=== PATIENT | male | born 1935 | race Caucasian/White ===

== ENCOUNTER 2022-07-27 14:09 | Inpatient (IN) | payer MEDICARE ==
[~2022-07-27] VITALS: Ht 170.2 cm; Wt 103.4 kg
[2022-07-27] MEDS ORDERED: ATOR40TA PO (14:30)
[2022-07-27] MEDS ORDERED: CYAN100T44 PO (14:30)
[2022-07-27] MEDS ORDERED: ASPI81TA31 PO (14:30)
[2022-07-27] MEDS ORDERED: INSU100I14 SUBCUT (14:30)
[2022-07-27] MEDS ORDERED: NITR0.4T SL (14:30)
[2022-07-27] MEDS ORDERED: LISI20TA30 PO (14:30)
[2022-07-27] MEDS ORDERED: INSU300I SQ (14:30)
[2022-07-27] MEDS ORDERED: METF-442 PO (14:30)
[2022-07-27] MEDS ORDERED: CLOP75TA15 PO (14:30)
[2022-07-27 14:37] LABS: HEMATOCRIT 40.7 % (36.7-47.1); MEAN CORPUSCULAR HEMOGLOBIN 31.2 uug (23.8-33.4); MEAN CORPUSCULAR VOLUME 96.2 fL (73.0-96.2); PLATELET COUNT (AUTO) 269 K/uL (152-348)
[2022-07-27] MEDS ORDERED: METO25TA6 PO (14:37)
--- NOTE | 2022-07-27 14:41 | NUR ---
PT IS IN ROOM #1B. DR DE SANTIAGO EVALUATED THE PT.
[2022-07-27] MEDS ORDERED: IV NORMAL SALINE 1000 ML BAG IV ONE (14:45)
[2022-07-27 15:00] LABS: ALANINE AMINOTRANSFERASE 43 U/L (16-63); ALKALINE PHOSPHATASE 83 U/L (50-136); ASPARTATE AMINOTRANSFERASE 54 U/L (15-37); BILIRUBIN,DIRECT 0.2 mg/dL (0.0-0.2); BILIRUBIN,TOTAL 0.8 mg/dL (0.2-1.0); CARBON DIOXIDE 23 mmol/L (21-32); CHLORIDE 98 mmol/L (98-107); CREATININE 1.2 mg/dL (0.6-1.3); GLUCOSE 141 mg/dL (74-106); POTASSIUM 4.3 mmol/L (3.5-5.1); TOTAL PROTEIN, SERUM 7.7 g/dL (6.4-8.2); UREA NITROGEN, BLOOD 20 mg/dL (7-18)
[2022-07-27 15:48] LABS: THYROID STIMULATING HORMONE 3.268 mIU/mL (0.358-3.740)
[2022-07-27] MEDS ORDERED: PIPERACILLIN SODIUM/TAZOBACTAM 3.375 G in IV DEXTROSE 5% 50 ML IV ONE (16:15)
[2022-07-27] MEDS ORDERED: PIPERACILLIN/TAZOBACTAM/D5W 50 ML IV ONE (16:28)
[2022-07-27] MEDS ORDERED: ONDANSETRON 4 MG/2 ML VIAL IV PRN (17:45)
[2022-07-27] MEDS ORDERED: ACETAMINOPHEN 325 MG TABLET PO PRN (17:45)
[2022-07-27] MEDS ORDERED: MAGNESIUM HYDROXIDE 30 ML LIQUID UDC PO PRN (17:45)
[2022-07-27] MEDS ORDERED: NITROGLYCERIN 0.4 MG/TAB BOTTLE SL PRN (17:45)
[2022-07-27] MEDS ORDERED: REMEDY ESSENTIAL ZINC PASTE 113 GM TP PRN (17:45)
[2022-07-27] MEDS ORDERED: DEXTROSE 50% 50 ML DISP.SYRIN IV PRN (17:45)
--- NOTE | 2022-07-27 17:57 | NUR ---
REPORT WAS GIVEN TO TRAVEL SERVICE CONSULTANT . PT WAS TRANSFERED TO ROOM #324.
--- NOTE | 2022-07-27 18:15 | NUR ---
received from ER awake alert per jody main c/o of weakness and altered mental status , pt is now oriented x 3, tele applied, SR 80's, on roomair, sat at 94%, noted to have a dry cough, routine admission care rendered, oriented to call button and bed controls, safety measures initated, no distress noted, will endorse to next shift RN
[2022-07-27 18:45] LABS: *BILIRUBIN,URIN NEGATIVE (NEGATIVE); *BLOOD, URINE NEGATIVE (NEGATIVE); *CLARITY,URINE CLEAR (CLEAR); *COLOR,URINE YELLOW (YELLOW); *KETONES,URINE 1+ (NEGATIVE); LEUKOCYTE ESTERASE ,URINE NEGATIVE (NEGATIVE); NITRITE, URINE NEGATIVE (NEGATIVE); UGLUCOSE NEGATIVE (NEGATIVE)
[2022-07-27 18:52] LABS: RBC,URINE NONE SEEN /HPF (0-3); WBC,URINE NONE SEEN /HPF (0-3)
[2022-07-27 18:53] LABS: BACTERIA,URINE FEW /HPF (NONE SEEN)
[2022-07-27 18:59] VITALS: BP 153/67
[2022-07-27 19:11] LABS: TRIPLE PHOSPHATE CRYSTAL,UR FEW /HPF (NONE SEEN)
[2022-07-27 19:13] LABS: URINE AMORPHOUS URATE FEW /HPF
--- NOTE | 2022-07-27 19:14 | NUR ---
reported lactic acid 3.o to Dr Cruz- pt already wisth admitting orders and no further order given
[2022-07-27 19:18] LABS: SQUAMOUS EPITHELIAL CELL,UR FEW /HPF (NONE SEEN)
--- NOTE | 2022-07-27 19:20 | NUR ---
Received patient in bed, a/0 x 1 to 2, no complain of pain, no sob no chest pain. sinus rhythm on 80's, patient appear to be weak, needs max assist with adl's. Patient has dry cough, sat wnl, with right eye dryness with crush on it, kept eyes clean, patient has large BM, and voiding well. remain on droplet precaution, Covid 19, cont to monitor.
[2022-07-27 20:00] VITALS: BP 179/75
[2022-07-27] MEDS ORDERED: AZITHROMYCIN IV 500 MG in IV DEXTROSE 5% 250 ML IV SCH (20:00)
[2022-07-27] MEDS: IV 1/2NS 1000 ML 1,000 ML IV PRN (20:06)
[2022-07-27] MEDS: METOPROLOL TARTRATE 25 MG TABLET PO SCH (20:43)
[2022-07-27] MEDS ORDERED: CEFTRIAXONE 2 G in IV DEXTROSE 5% 100 ML IV SCH (21:00)
[2022-07-27] MEDS ORDERED: ENOXAPARIN SODIUM 40 MG/0.4 ML DISP.SYRIN SQ SCH (21:00)
[2022-07-27] MEDS ORDERED: CEFTRIAXONE 1 G in IV DEXTROSE 5% 50 ML IV SCH (21:00)
[2022-07-27] MEDS ORDERED: INSULIN REGULAR, HUMAN 300 UNITS/3 ML VIAL SQ PRN (21:00)
[2022-07-27] MEDS: BLOOD SUGAR DIAGNOSTIC 1 EACH STRIP VI SCH (21:10)
[2022-07-27] MEDS ORDERED: AZITHROMYCIN 500 MG VIAL IV ONE (21:23)
[2022-07-27] MEDS ORDERED: CEFTRIAXONE 1 G VIAL ONE (21:23)
[2022-07-28] VITALS: BP 160/68
[2022-07-28] MEDS: DEXAMETHASONE SOD PHOSPHATE 4 MG INJ IV SCH ×2 (01:03→08:24)
[2022-07-28 04:00] VITALS: BP 102/69
[2022-07-28] MEDS: BLOOD SUGAR DIAGNOSTIC 1 EACH STRIP VI SCH ×2 (06:13→11:42)
--- NOTE | 2022-07-28 06:42 | NUR ---
Patient asleep but arousable, no sob no chest pain, remain on droplet precaution, with dry to moist cough, sat wnl. Patient has 3 large bm soft not diarrhea, assist with toileting, tele monitor sinus , no complain of pain, cont to monitor.
[2022-07-28 07:14] LABS: HEMATOCRIT 39.4 % (36.7-47.1); MEAN CORPUSCULAR HEMOGLOBIN 32.3 uug (23.8-33.4); MEAN CORPUSCULAR VOLUME 96.2 fL (73.0-96.2); PLATELET COUNT (AUTO) 236 K/uL (152-348)
[2022-07-28 07:26] LABS: BILIRUBIN,TOTAL 0.7 mg/dL (0.2-1.0); MAGNESIUM 1.5 mg/dL (1.8-2.4); PHOSPHOROUS 3.6 mg/dL (2.5-4.9); POTASSIUM 4.1 mmol/L (3.5-5.1); TOTAL PROTEIN, SERUM 7.5 g/dL (6.4-8.2)
--- NOTE | 2022-07-28 08:00 | NUR ---
RECEIVED PATIENT AWAKE ALERT HARD OF HEARING BUT IS ABLE TO MAKE NEEDS KNOWN REMAIN ON IVF ORDERED WITH NO S/S OF INFILTERATION ON SITE ON COVID ISOLATION AND PRECAUTION CALL LIGHTS AND PERSONAL BELONGINGS ARE WITHIN EASY REACH AT THIS TIME WILL CONTINUE TO OBSERVE.
[2022-07-28] MEDS: INSULIN REGULAR, HUMAN 300 UNIT/3 ML VIAL SQ PRN ×2 (08:03→11:51)
[2022-07-28] MEDS: METOPROLOL TARTRATE 25 MG TABLET PO SCH (08:26)
[2022-07-28] MEDS ORDERED: LISINOPRIL 20 MG TABLET PO SCH (09:00)
[2022-07-28] MEDS ORDERED: INSULIN GLARGINE,HUM 300 UNITS/3 ML CARTRIDGE SQ SCH (09:00)
[2022-07-28] MEDS ORDERED: CYANOCOBALAMIN 100 MCG TABLET PO SCH (09:00)
[2022-07-28] MEDS ORDERED: CLOPIDOGREL 75 MG TABLET PO SCH (09:00)
[2022-07-28] MEDS ORDERED: ASPIRIN 81 MG TAB.CHEW PO SCH (09:00)
--- NOTE | 2022-07-28 09:30 | NUR ---
MAG LEVEL IS 1.[address] العراقي WITH NEW REPLACEMENT ORDERS.
[2022-07-28] MEDS: MAGNESIUM SULFATE/D5W 100 ML IV SCH ×3 (10:40→12:56)
[2022-07-28] MEDS: IV 1/2NS 1000 ML 1,000 ML IV PRN (10:40)
[2022-07-28 12:00] VITALS: BP 156/80
[2022-07-28] MEDS ORDERED: METO-356 PO (13:30)
--- NOTE | 2022-07-28 14:00 | NUR ---
DISCHARGE ORDER NOTED FROM DR BLACK AWAITING FOR HIS FAMILY INPUT.
--- NOTE | 2022-07-28 16:12 | NUR ---
PATIENT DISCHARGED PICKED UP BY HIS MASO[facility] IN SATISFACTORY CONDITION WITH DISCHARGE INSTRUCTIONS AND PATIENT TO CONTINUE TO ISOLATE SELF AND FOLLOW UP WITH HIS PRIMARY DOCTOR WITHIN THE NEXT TWO WEEKS AND SHE EXPRESSED UNDERSTANDING.
[2022-07-28] MEDS ORDERED: ATORVASTATIN 40 MG TABLET PO SCH (21:00)
[2022-07-29] MEDS ORDERED: METOPROLOL SUCCINATE XL 25 MG TAB.SR.24H PO SCH (09:00)
== END 2022-07-28 16:12 | disposition home or self-care (01) | DRG 177 ==
LOC: ER 14:09 → TELE3 17:49
PROVIDERS: ADMIT Internal Medicine; ATTEND Internal Medicine
DX: U07.1 COVID-19 (principal); I50.23 Acute on chronic systolic (congestive) heart failure; N17.0 Acute kidney failure with tubular necrosis; J12.82 Pneumonia due to coronavirus disease 2019; T67.5XXA Heat exhaustion, unspecified, initial encounter; X30.XXXA Exposure to excessive natural heat, initial encounter; Y93.89 Activity, other specified; Y92.89 Other specified places as the place of occurrence of the external cause; E86.0 Dehydration; E11.9 Type 2 diabetes mellitus without complications; E66.9 Obesity, unspecified; E78.5 Hyperlipidemia, unspecified; I11.0 Hypertensive heart disease with heart failure; Z79.4 Long term (current) use of insulin; I25.10 Atherosclerotic heart disease of native coronary artery without angina pectoris; J32.0 Chronic maxillary sinusitis; Z79.82 Long term (current) use of aspirin; I25.2 Old myocardial infarction; Z79.84 Long term (current) use of oral hypoglycemic drugs; Z95.5 Presence of coronary angioplasty implant and graft; Z68.35 Body mass index [BMI] 35.0-35.9, adult
CPT/HCPCS: 36415; 70450; 71045; 83605; 83615; 83735; 84100; 84443; 84484; 85025; 86140; 87040; 93005; A4663; G0378; J0456; J0696; J1100; J1650; J1815; J2543; J3475; J7040; J7050